=== PATIENT | male | born 1980 | race Caucasian/White ===

== ENCOUNTER → 2018-02-27 | Outpatient (REF) ==
[~2018-02-27] MED LIST: CEP500 PO
== END ==
LOC: AUD 12:02
PROVIDERS: ATTEND Family Medicine
DX: Z02.1 Encounter for pre-employment examination (principal)
CPT/HCPCS: 92552

== ENCOUNTER → 2018-10-05 | Outpatient (REF) | LOC: AUD 09:45 | PROVIDERS: ATTEND Internal Medicine | DX: Z01.12 Encounter for hearing conservation and treatment (principal) | CPT/HCPCS: 92552 ==